=== PATIENT | male | born 1990 | race Caucasian/White ===

== ENCOUNTER 2017-02-01 20:15 | Emergency (ER) | payer BC ==
[2017-02-01 20:36] VITALS: BP 117/61
== END 2017-02-01 21:30 | disposition home or self-care (01) ==
LOC: ED 20:15
DX: S90.32XA Contusion of left foot, initial encounter (principal); X58.XXXA Exposure to other specified factors, initial encounter; Y93.89 Activity, other specified; Y92.89 Other specified places as the place of occurrence of the external cause; Y99.8 Other external cause status

== ENCOUNTER 2018-11-21 21:56 | Emergency (ER) | payer BC ==
[~2018-11-21] VITALS: Ht 170.2 cm; Wt 101.2 kg
[2018-11-21 22:00] VITALS: BP 123/68; Ht 170.2 cm; Wt 101.2 kg
== END 2018-11-21 23:04 | disposition home or self-care (01) ==
LOC: ED 21:56
DX: S60.417A Abrasion of left little finger, initial encounter (principal); F41.9 Anxiety disorder, unspecified; Z90.49 Acquired absence of other specified parts of digestive tract; W18.39XA Other fall on same level, initial encounter; Y93.89 Activity, other specified; Y92.89 Other specified places as the place of occurrence of the external cause; Y99.8 Other external cause status
CPT/HCPCS: 90715

== ENCOUNTER 2019-07-20 21:38 | Emergency (ER) | payer BC ==
[~2019-07-20] VITALS: Ht 170.2 cm; Wt 99.8 kg
[2019-07-20 21:44] VITALS: Ht 170.2 cm; Wt 99.8 kg
[2019-07-20 23:32] LABS: CALCIUM 8.6 mg/dL (8.5-10.1); CARBON DIOXIDE 29.8 mmol/L (21-32); CHLORIDE SERUM 105 mmol/L (98-107); GFR1 > 60 mL/min; GLUCOSE SERUM 96 mg/dL (74-106); POTASSIUM SERUM 4.1 mmol/L (3.5-5.1); SODIUM SERUM 140 mmol/L (136-145)
[2019-07-20 23:37] LABS: ALBUMIN 3.7 g/dL (3.4-5.0); ALKALINE PHOSPHATASE 61 U/L (46-116); ALT/SGPT 49 U/L (16-63); AST/SGOT 22 U/L (15-37); BASOPHIL % 0.5 % (0-2); BILIRUBIN TOTAL 0.27 mg/dL (0.20-1.00); PLATELET COUNT 261 x10^3mcL (130-400); RED CELL DISTRIBUTION WIDTH 12.8 % (11.5-14.5); TOTAL PROTEIN, SERUM 6.7 g/dL (6.4-8.2)
[2019-07-21 00:37] VITALS: BP 118/74
== END 2019-07-21 00:30 | disposition home or self-care (01) ==
LOC: ED 21:38
PROVIDERS: Emergency Medicine
DX: R07.89 Other chest pain (principal); R06.02 Shortness of breath; Z90.49 Acquired absence of other specified parts of digestive tract
CPT/HCPCS: 85378; J1885; Q0092